=== PATIENT | male | born 1995 | race American Indian/Alaskan Native ===

== ENCOUNTER 2017-07-04 18:15 | Emergency (ER) | payer OTHER ==
[~2017-07-04] VITALS: Ht 188 cm; Wt 156.5 kg
[~2017-07-04 18:15] MED LIST: ACID CONTROL150 MG PO; BACLOFEN10 MG PO; BACTRIM DS TAB1 EACH PO; BENTYL20 MG PO; BUPROPION XL300 MG PO; CORTISPORIN EAR10 ML AU; DICLOFENAC SODI75 MG PO; KEFLEX500 MG PO; NEURONTIN100 MG PO; PRILOSEC20 MG PO; ZOFRAN ODT4 MG PO; ZOFRAN ODT4 MG SL; ZOFRAN4 MG PO
[2017-07-04] MEDS ORDERED: PROTONIX20 MG PO (18:34)
[2017-07-04] MEDS ORDERED: NORCO 5-325 TA1 EACH PO (19:34)
== END 2017-07-04 19:47 | disposition home or self-care (01) ==
LOC: ED 18:15
PROC: 2W3CX1Z Immobilization of Right Lower Arm using Splint (ICD-10-PCS; principal; 2017-07-04)
DX: S62.304A Unspecified fracture of fourth metacarpal bone, right hand, initial encounter for closed fracture (principal); S62.306A Unspecified fracture of fifth metacarpal bone, right hand, initial encounter for closed fracture; F41.9 Anxiety disorder, unspecified; F32.9 Major depressive disorder, single episode, unspecified; F17.200 Nicotine dependence, unspecified, uncomplicated; Z88.8 Allergy status to other drugs, medicaments and biological substances; Z79.899 Other long term (current) drug therapy; W22.8XXA Striking against or struck by other objects, initial encounter
CPT/HCPCS: 29125; 73130; 99283

== ENCOUNTER 2017-07-13 10:00 | Day surgery (SDC) | payer OTHER ==
[~2017-07-13] VITALS: Ht 188 cm; Wt 156.5 kg
[~2017-07-13 10:00] MED LIST changes: +NORCO 5-325 TA1 EACH PO; +PROTONIX20 MG PO
--- NOTE | 2017-07-13 12:38 | NUR ---
FENTANYL 50MCG GIVEN IVP FOR C/O 7/10 PAIN IN R HAND. CALL LITE IN PLACE.
--- NOTE | 2017-07-13 15:48 | NUR ---
07/13/17 1548 Sheree Sheridan 1526-PATIENT ARRIVED TO PACU ON RA LAYING ON LEFT SIDE 93% DRESSING CDI ICE APPLIED. GOOD WARMTH AND CAP REFILL ISIAH RADIAL PULSE. 1533-PATIENT REPORTING PAIN 09/12 MEDICATED WITH 30MG TORADOL IVP. PATIENT PLACED ON 3L NC O2 SAT DECREASED TO 89-90% RR INCREASED TO 26. BREATHING INCREASED. PATIENT ENCOURAGED TO TAKE SLOW DEEP BREATHES. 1537-1 MG DILAUDID IVP GIVEN. PATIENT REPOSITIONING SELF IN BED EDUCATED ON LEAVING RIGHT HAND ON PILLOW AND APPLY ICE. PATIENT ENCOURAGED TO TAKE SLOW BREATHES ANXIOUS.
--- NOTE | 2017-07-13 16:49 | NUR ---
AMILCAR 1625: PT UP TO BR W/RN AND FRIEND ASSIST. PT UNSTEADY ON FEET UPON FIRST STANDING. PT STEADY ON FEET BY THE TIME WE REACH THE BATHROOM. PT VOIDS LARGE AMOUNT AND REQ A CIGARETTE AND TO GO HOME. PLAN OF CARE DISCUSSED W/PATIENT AND HE VERBALIZES UNDERSTANDING. SANDWICH AND FRUIT ORDERED FROM DIETARY. ICED WATER GIVEN. CALL LIGHT W/IN REACH. FRIEND @ BS.
--- NOTE | 2017-07-13 17:27 | NUR ---
FOOD ARRIVED FROM DIETARY. PT STANDING @ BS EATING AND DOING SO WELL. VERBAL DC INSTRUCTIONS GIVEN IN PRESENCE OF FRIEND AND BOTH VERBALIZE UNDERSTANDING.
--- NOTE | 2017-07-13 17:44 | NUR ---
PT AMBULATES OUT OF HOSPITAL W/RN ACCOMPANY AND DOES SO WELL. PT TRANSFERS SELF TO PERSONAL VEHICLE AND IS DC HOME.
--- NOTE | 2017-07-14 14:06 | OR ---
[facility] [address] [place], [place] [address] Signed DATE OF PROCECURE: 07/13/17 PREOPERATIVE DIAGNOSES Displaced fractures, right 4th and right 5th metacarpal. POSTOPERATIVE DIAGNOSES Displaced fractures, right 4th and right 5th metacarpal. PROCEDURE Open reduction and internal fixation, right 4th and right 5th metacarpal midshaft. SURGEON: Boom Doan MD. ANESTHESIA: General. There were no specimens or complications. TOURNIQUET TIME: Under an hour. DESCRIPTION OF PROCEDURE The patient was taken to the operating room. After anesthesia was induced and airway secured, the patient was positioned, prepped and draped in a routine sterile fashion. The arm was exsanguinated with an Esmarch bandage. Pneumatic tourniquet was inflated to 250 mmHg pressure. We then made a dorsal incision in the interval between the 4th and the 5th metacarpal. Skin was divided sharply. Subcutaneous tissue was bluntly spread. Hemostasis was achieved with electrocautery. We then reflected the extensor tendon of the 4th finger in a radial direction and the fracture was visible. Because of severe displacement of the 4th metacarpal fracture, no additional dissection was really required. We reduced the fracture under direct vision and then fixed it with a 6-hole 2.0 mm plate. Clinical examination, an AP and lateral fluoroscopy confirmed good alignment and good position. We then simply pulled the dissection in an older direction. Again, because of the severe disruption of the soft tissues from the force and displacement of the fracture, really no additional dissection was required. Again, we used the termite clamp to reduce and hold the 5th metacarpal fracture. Once we were happy with the clinical alignment and position and the alignment and position noted on fluoroscopy, it too was secured with a 6-hole 2.0 mm plate. The wound was then gently irrigated. Routine wound closure was accomplished and a sterile dressing and a volar splint were applied. He was awakened and taken to the recovery room where he arrived in stable condition. Counts were correct and antibiotic protocols were followed. Electronically Signed By: BOOM DOAN MD 07/14/17 1406 PATIENT NAME: CASTILLO CARBONE OPERATIVE REPORT DATE OF : [birth year] PHYSICIAN: BOOM DOAN MD REPORT #: [id number] REPORT IS CONFIDENTIAL AND NOT TO BE RELEASED WITHOUT AUTHORIZATION [address] [address] Signed Boom Doan MD WFB/Modl /[id number] cc: Karrie Marie PA-C Electronically Signed By: BOOM DOAN MD 07/14/17 1406 PATIENT NAME: CASTILLO CARBONE OPERATIVE REPORT DATE OF : [birth year] PHYSICIAN: BOOM DOAN MD REPORT #: [id number] REPORT IS CONFIDENTIAL AND NOT TO BE RELEASED WITHOUT AUTHORIZATION
== END 2017-07-13 17:40 | disposition home or self-care (01) ==
LOC: DS 10:00
PROVIDERS: Orthopaedic Surgery
PROC: 0PSP04Z Reposition Right Metacarpal with Internal Fixation Device, Open Approach (ICD-10-PCS; principal; 2017-07-13 12:30)
DX: S62.324A Displaced fracture of shaft of fourth metacarpal bone, right hand, initial encounter for closed fracture (principal); S62.326A Displaced fracture of shaft of fifth metacarpal bone, right hand, initial encounter for closed fracture; K21.9 Gastro-esophageal reflux disease without esophagitis; F32.9 Major depressive disorder, single episode, unspecified; W22.09XA Striking against other stationary object, initial encounter; Z88.8 Allergy status to other drugs, medicaments and biological substances; Z79.899 Other long term (current) drug therapy
CPT/HCPCS: 01830; 64417; 73120; 76942; C1713; J0690; J1100; J1170; J1885; J2250; J2405; J2704; J2795; J3010; J7120

== ENCOUNTER 2017-09-21 14:55 | Emergency (ER) | payer OTHER ==
[~2017-09-21] VITALS: Ht 188 cm; Wt 156.5 kg
--- NOTE | 2017-09-22 07:42 | EKG ---
[facility] [address] [facility] [place] [address] Signed Normal sinus rhythm with sinus arrhythmia Incomplete right bundle branch block Borderline ECG When compared with ECG of 12-JUL-2017 12:47, Incomplete right bundle branch block is now present Confirmed by TRACI MCANMARA MD ([id number]) on 09/22/2017 7:42:44 AM Electronically Signed By: TRACI MCNAMARA MD 09/22/17 0742 PATIENT NAME: CASTILLO CARBONE BOOM Electrocardiogram DATE OF : [birth year] PHYSICIAN: TRACI MCNAMARA MD REPORT #: [id number] REPORT IS CONFIDENTIAL AND NOT TO BE RELEASED WITHOUT AUTHORIZATION
== END 2017-09-21 16:41 | disposition home or self-care (01) ==
LOC: ED 14:55
DX: F41.9 Anxiety disorder, unspecified (principal); F17.200 Nicotine dependence, unspecified, uncomplicated; Z88.8 Allergy status to other drugs, medicaments and biological substances
CPT/HCPCS: 71020; 80053; 84484; 85025; 85379; 93005; 93010; 99284

== ENCOUNTER 2017-12-23 17:53 | Emergency (ER) | payer OTHER ==
[~2017-12-23] VITALS: Ht 188 cm; Wt 149.7 kg
--- NOTE | 2017-12-24 07:06 | EKG ---
[facility] [address] [facility] [place] [address] Signed Normal sinus rhythm Normal ECG When compared with ECG of 21-SEP-2017 15:08, Incomplete right bundle branch block is no longer present Confirmed by TRACI MCNAMARA MD ([id number]) on 12/24/2017 7:06:32 AM Electronically Signed By: TRACI MCNAMARA MD 12/24/17 0706 PATIENT NAME: CASTILLO CARBONE BOOM Electrocardiogram DATE OF : [birth year] PHYSICIAN: TRACI MCNAMARA MD REPORT #: [id number] REPORT IS CONFIDENTIAL AND NOT TO BE RELEASED WITHOUT AUTHORIZATION
== END 2017-12-23 19:17 | disposition home or self-care (01) ==
LOC: ED 17:53
DX: R00.2 Palpitations (principal); K21.9 Gastro-esophageal reflux disease without esophagitis; F17.200 Nicotine dependence, unspecified, uncomplicated; Z88.8 Allergy status to other drugs, medicaments and biological substances
CPT/HCPCS: 80048; 84484; 85025; 93005; 93010; 99283

== ENCOUNTER 2018-02-20 06:51 | Emergency (ER) | payer OTHER ==
[~2018-02-20] VITALS: Ht 188 cm; Wt 149.7 kg
[2018-02-20] MEDS ORDERED: NORCO 5-325 TA1 EACH PO (07:50)
[2018-02-20] MEDS ORDERED: CEPHALEXIN500 MG PO (07:50)
== END 2018-02-20 08:02 | disposition home or self-care (01) ==
LOC: ED 06:51
PROC: 0HDRXZZ Extraction of Toe Nail, External Approach (ICD-10-PCS; principal; 2018-02-20)
DX: L60.0 Ingrowing nail (principal); F17.200 Nicotine dependence, unspecified, uncomplicated; Z88.8 Allergy status to other drugs, medicaments and biological substances
CPT/HCPCS: 11750; 99283

== ENCOUNTER 2018-07-04 12:30 | Emergency (ER) | payer OTHER ==
[~2018-07-04] VITALS: Ht 188 cm; Wt 149.7 kg
--- OUTSIDE RECORDS SUMMARY | ~2018-07-04 | XMS | Encounter Summary ---
Demographics + + + | Address | [address] | | | [place] [address] | + + + | Home Phone | | + + + | Preferred Language | Unknown | + + + | Marital Status | Single | + + + | Mu-Ism Affiliation | Unknown | + + + | Race | Unknown | + + + | Ethnic Group | Unknown | + + + Author + + + | Author | [facility] | | | and [place] | + + + | Organization | [facility] | | | and [place] | + + + | Address | Unknown | + + + | Phone | Unavailable | + + + Support + + +---------+ + | Name | Relationship | Address | Phone | + + +---------+ + | Sari Boo | ECON | Unknown | | + + +---------+ + Care Team Providers + +------+ + | Care Environmental Conflict Manager Name | Role | Phone | + +------+ + | Karrie Marie PA-C | PCP | | + +------+ + Reason for Visit Auth/Cert +--------+--------+ + + + + | Status | Reason | Specialty | Diagnoses / | Referred By | Referred To | | | | | Procedures | Contact | Contact | +--------+--------+ + + + + | | | | | | | +--------+--------+ + + + + Encounter Details +--------+ + + + + | Date | Type | Department | Care Team | Description | +--------+ + + + + | 06/28/ | Hospital | [facility] | Karrie Marie | Shortness of breath; | | 2017 | Encounter | [facility] | H, [place] [address] | Dizziness; Heart | | | | MEDICINE [address] | palpitations | | | | [place], | [place] [address] | | | | | [place] [address] | [phone] | | | | | [phone] | | | +--------+ + + + + Social History + +-------+ +--------+------+ | Tobacco Use | Types | Packs/Day | Years | Date | | | | | Used | | + +-------+ +--------+------+ | Never Assessed | | | | | + +-------+ +--------+------+ + + + | Sex Assigned at | Date Recorded | | | | + + + | Not on file | | + + + as of this encounter Plan of Treatment + +--------+ + + | Name | Priori | Associated Diagnoses | Order Schedule | | | ty | | | + +--------+ + + | Event monitor - 4 week | Routin | Shortness of | 1 Occurrences | | | e | breath Dizziness | starting 06/28/2018 | | | | Heart palpitations | until 06/28/2018 | + +--------+ + + as of this encounter Visit Diagnoses + + | Diagnosis | + + | Shortness of breath | + + | Dizziness | + + | Dizziness and giddiness | + + | Heart palpitations | + + | Palpitations | + +"
--- OUTSIDE RECORDS SUMMARY | ~2018-07-04 | XMS | Encounter Summary ---
Demographics + + + | Address | [address] [facility] [address] | | | [place] [address] | + + + | Home Phone | | + + + | Preferred Language | Unknown | + + + | Marital Status | Unknown | + + + | Holiness Affiliation | Unknown | + + + | Race | Unknown | + + + | Ethnic Group | Unknown | + + + Author + + + | Author | [facility] | + + + | Organization | [facility] | + + + | Address | Unknown | + + + | Phone | Unavailable | + + + Support + + +---------+ + | Name | Relationship | Address | Phone | + + +---------+ + | Deidre Garcia | ECON | Unknown | | + + +---------+ + Care Team Providers + +------+ + | Care Pit Hoist Operator Name | Role | Phone | + +------+ + | Karrie Marie PA-C | PCP | | + +------+ + Encounter Details +--------+ + + + + | Date | Type | Department | Care Team | Description | +--------+ + + + + | 06/10/ | Ancillary | [facility] | Karrie Marie | SOB (shortness of | | 2017 | Procedure | ECHO | [facility] [address] | breath); Chest | | | | | [place] [address] | pressure; Dizziness | | | | | [phone] | | | | | | | | +--------+ + + + [...] as of this encounter Plan of Treatment Not on fileas of this encounter Procedures + +--------+ + + + | Procedure Name | Priori | Date/Time | Associated Diagnosis | Comments | | | ty | | | | + +--------+ + + + | ECHO OUTSIDE | Routin | 06/10/2018 | SOB (shortness of | Results for this | | INTERPRETATION | e | 10:42 AM | breath) Chest | procedure are in the | | STANDARD | | PDT | pressure Dizziness | results section. | + +--------+ + + + in this encounter Results ECHO outside interpretation standard (06/10/2018 10:42 AM) + + + | Impressions | Performed At | + + + | 1. This was a technically difficult study with suboptimal views. | [facility] | | Body habitus. 2. Grossly normal LV size and systolic function EF | RADIOLOGY | | 60-65%. Unable to comment on regional wall motion. 3. The right | | | ventricle is mildly enlarged with normal systolic function. 4. There | | | is no pericardial effusion. | | + + + + + + | Narrative | Performed At | + + + | Patient Name: Cachorro Garcia Date of : 1995 | [facility] | | Performing Physician: Radha Juan | RADIOLOGY | | | | | INDICATIONS SOB, Dizziness, chest pressure | | | CONCLUSIONS 1. This was a technically difficult study | | | with suboptimal views. Body habitus. 2. Grossly normal LV size and | | | systolic function EF 60-65%. Unable to comment on regional wall | | | motion. 3. The right ventricle is mildly enlarged with normal | | | systolic function. 4. There is no pericardial effusion. FINDINGS | | | -------- ECG rhythm: Sinus rhythm. Study: A 2-dimensional | | | transthoracic echocardiogram with m-mode, spectral and color flow | | | Doppler was perfomed. Study: This was a technically difficult study | | | with suboptimal views. Body habitus. Left Ventricle: The diastolic | | | filling pattern is normal for the age of the patient. Left | | | Ventricle: Grossly normal LV size and systolic function. Unable to | | | comment on regional wall motion. Right Ventricle: The right ventricle | | | is mildly enlarged measuring between 3.4 - 3.7 cm. Right Ventricle: | | | The right ventricular systolic function is normal. Left Atrium: The | | | left atrium is normal in size. Right Atrium: The right atrium is | | | normal in size. Aortic Valve: The aortic valve was not well | | | visualized. Aortic Valve: There is no evidence of aortic | | | regurgitation. Aortic Valve: There is no evidence of aortic | | | stenosis. Aortic Valve: The aortic valve is trileaflet and appears | | | structurally normal. Mitral Valve: The mitral valve is normal. | | | Mitral Valve: There is trace mitral regurgitation. Tricuspid Valve: | | | The tricuspid valve appears structurally normal. Tricuspid Valve: | | | Trace tricuspid regurgitation present. Tricuspid Valve: There is no | | | evidence of pulmonary hypertension. Tricuspid Valve: The right | | | ventricular systolic pressure (pulmonary artery systolic pressure), as | | | measured by Doppler, is 18.67mmHg. Pulmonic Valve: The pulmonic | | | valve was not well visualized. Pericardium: There is no pericardial | | | effusion. Pericardium: No pleural effusion seen. IVC/Hepatic Veins: | | | The IVC is normal size (1.5-2.5cm) and collapses >50% with sniff, | | | consistent with central venous pressures of 5-10mmHg. Aorta: The | | | aortic root, ascending aorta and aortic arch are normal in size. | | | MEASUREMENTS Ao asc: 2.90 cm Ao Diam: 3.27 cm | | | Ao st junct: 2.54 cm IVC: 2.26 cm LA Diam: 3.84 cm LA | | | Major: 4.69 cm EDV(Teich): 98.91 ml IVSd: 1.00 cm | | | LVIDd: 4.63 cm LVPWd: 0.97 cm LVOT Area: 4.15 cm2 LVOT | | | Diam: 2.30 cm %FS: 28.72 % EF(Teich): 55.34 % | | | ESV(Teich): 44.17 ml LVIDs: 3.30 cm SV(Teich): 54.74 ml | | | RA Major: 5.40 cm RV Major: 7.73 cm RVIDd: 3.04 cm TV | | | Mary Diam: 3.56 cm Ao Root: 2.85 cm Ao Diam SVals: 3.17 | | | cm LVEF MOD A2C: 59.99 % SV MOD A2C: 108.83 ml LVEF MOD | | | A4C: 61.49 % SV MOD A4C: 72.31 ml EF Biplane: 61.07 % | | | LVEDV MOD BP: 153.94 ml LVESV MOD BP: 59.93 ml LVEDV MOD | | | A2C: 181.39 ml LVLd A2C: 9.20 cm LVEDV MOD A4C: 117.60 | | | ml LVLd A4C: 8.27 cm LVESV MOD A2C: 72.55 ml LVLs A2C: | | | 7.50 cm LVESV MOD A4C: 45.28 ml LVLs A4C: 6.79 cm | | | LAESV(A-L): 50.96 ml LAESV Index (A-L): 19.60 ml/m2 LAAs | | | A2C: 17.21 cm2 LAESV A-L A2C: 54.49 ml LALs A2C: 4.61 cm | | | LAAs A4C: 16.10 cm2 LAESV A-L A4C: 46.35 ml LALs A4C: | | | 4.74 cm RAAs: 15.82 cm2 RAESV A-L: 41.71 ml RAESV MOD: | | | 40.82 ml RALs: 5.09 cm TAPSE: 2.51 cm AV maxP.42 | | | mmHg AV meanP.44 mmHg AV Vmax: 1.26 m/s AV Vmean: | | | 0.86 m/s AV VTI: 25.46 cm LUCIAN Vmax: 3.56 cm2 LUCIAN (VTI): | | | 3.47 cm2 LVOT maxP.73 mmHg LVOT meanP.52 mmHg LVSI | | | Dopp: 34.05 ml/m2 LVSV Dopp: 88.53 ml LVOT Vmax: 1.08 | | | m/s LVOT Vmean: 0.73 m/s LVOT VTI: 21.31 cm MV A Gil: | | | 0.57 m/s MV Dec [place]: 5.19 m/s2 MV DecT: 207.99 ms MV E | | | Gil: 1.08 m/s MV E/A Ratio: 1.89 MV PHT: 60.31 ms MVA | | | By PHT: 3.64 cm2 Septal e': 0.11 m/s Septal E/e': 9.72 | | | Lateral e': 0.13 m/s Lateral E/e': 8.28 RAP: 5 mmHg | | | RVSP: 18.67 mmHg TR maxP.67 mmHg TR Vmax: 1.84 m/s | | | S': 0.17 m/s Corporate Development Officer: ANA Authenticated by: Radha | | | [facility] Report Date/Time: 06-10-2018 12:57:6 | | + + + + + | Procedure Note | + + | Aubrey, Rad Results In - 06/10/2018 12:57 PM PDT Patient Name: Mannie Garcia of | | : 1995Accession: [id number] Physician: Radha | | [facility] INDICATIONS------ | | -----SOB, Dizziness, chest pressureCONCLUSIONS 1. This was a technically | | difficult study with suboptimal views. Body habitus.2. Grossly normal LV size and | | systolic function EF 60-65%. Unable to comment on regional wall motion.3. The right | | ventricle is mildly enlarged with normal systolic function.4. There is no pericardial | | effusion.FINDINGS--------ECG rhythm: Sinus rhythm.Study: A 2-dimensional transthoracic | | echocardiogram with m-mode, spectral and color flow Doppler was perfomed. Study: This | | was a technically difficult study with suboptimal views. Body habitus.Left Ventricle: | | The diastolic filling pattern is normal for the age of the patient. Left Ventricle: | | Grossly normal LV size and systolic function. Unable to comment on regional wall | | motion.Right Ventricle: The right ventricle is mildly enlarged measuring between 3.4 - | | 3.7 cm. Right Ventricle: The right ventricular systolic function is normal.Left Atrium: | | The left atrium is normal in size.Right Atrium: The right atrium is normal in size. | | Aortic Valve: The aortic valve was not well visualized. Aortic Valve: There is no | | evidence of aortic regurgitation. Aortic Valve: There is no evidence of aortic stenosis. | | Aortic Valve: The aortic valve is trileaflet and appears structurally normal.Mitral | | Valve: The mitral valve is normal. Mitral Valve: There is trace mitral | | regurgitation.Tricuspid Valve: The tricuspid valve appears structurally normal. | | Tricuspid Valve: Trace tricuspid regurgitation present. Tricuspid Valve: There is no | | evidence of pulmonary hypertension. Tricuspid Valve: The right ventricular systolic | | pressure (pulmonary artery systolic pressure), as measured by Doppler, is | | 18.67mmHg.Pulmonic Valve: The pulmonic valve was not well visualized.Pericardium: There | | is no pericardial effusion. Pericardium: No pleural effusion seen.IVC/Hepatic Veins: The | | IVC is normal size (1.5-2.5cm) and collapses >50% with sniff, consistent with central | | venous pressures of 5-10mmHg.Aorta: The aortic root, ascending aorta and aortic arch are | | normal in size.MEASUREMENTS Ao asc: 2.90 cmAo Diam: 3.[address] junct: | | 2.54 cmIVC: 2.26 cmLA Diam: 3.84 cmLA Major: 4.69 cmEDV(Teich): 98.91 mlIVSd: | | 1.00 cmLVIDd: 4.63 cmLVPWd: 0.97 cmLVOT Area: 4.15 [id number] Diam: 2.30 cm%FS: | | 28.72 %EF(Teich): 55.34 %ESV(Teich): 44.17 mlLVIDs: 3.30 cmSV(Teich): 54.74 | | mlRA Major: 5.40 cmRV Major: 7.73 cmRVIDd: 3.04 cmTV Mary Diam: 3.56 cmAo Root: | | 2.85 cmAo Diam SVals: 3.17 cmLVEF MOD A2C: 59.99 %SV MOD A2C: 108.83 mlLVEF MOD | | A4C: 61.49 %SV MOD A4C: 72.31 mlEF Biplane: 61.07 %LVEDV MOD BP: 153.94 mlLVESV | | MOD BP: 59.93 mlLVEDV MOD A2C: 181.39 mlLVLd A2C: 9.20 cmLVEDV MOD A4C: 117.60 | | mlLVLd A4C: 8.27 cmLVESV MOD A2C: 72.55 mlLVLs A2C: 7.50 cmLVESV MOD A4C: 45.28 | | mlLVLs A4C: 6.79 cmLAESV(A-L): 50.96 mlLAESV Index (A-L): 19.60 ml/m2LAAs A2C: | | 17.21 [id number] A-L A2C: 54.49 mlLALs A2C: 4.61 cmLAAs A4C: 16.10 [id number] A-L A4C: | | 46.35 mlLALs A4C: 4.74 cmRAAs: 15.82 [id number] A-L: 41.71 mlRAESV MOD: 40.82 | | mlRALs: 5.09 cmTAPSE: 2.51 cmAV maxP.42 mmHgAV meanP.44 mmHgAV Vmax: | | 1.26 m/Caesar Vmean: 0.86 m/Caesar VTI: 25.46 cmAVA Vmax: 3.56 cm2AVA (VTI): 3.47 | | [id number] maxP.73 mmHgLVOT meanP.52 mmHgLVSI Dopp: 34.05 ml/m2LVSV Dopp: | | 88.53 mlLVOT Vmax: 1.08 m/sLVOT Vmean: 0.73 m/sLVOT VTI: 21.31 cmMV A Gil: 0.57 | | m/sMV Dec [place]: 5.19 m/s2MV DecT: 207.99 msMV E Gil: 1.08 m/sMV E/A Ratio: 1.89 | | MV PHT: 60.31 msMVA By PHT: 3.64 lj3Cyvaud e': 0.11 m/sSeptal E/e': 9.72 | | Lateral e': 0.13 m/sLateral E/e': 8.28 RAP: 5 mmHgRVSP: 18.67 mmHgTR maxPG: | | 13.67 mmHgTR Vmax: 1.84 m/sS': 0.17 m/sSonographer: DHAuthenticated by: Mershed | | [facility] Date/Time: 06-10-2018 12:57:6IMPRESSION:1. This was a technically difficult | | study with suboptimal views. Body habitus.2. Grossly normal LV size and systolic | | function EF 60-65%. Unable to comment on regional wall motion.3. The right ventricle is | | mildly enlarged with normal systolic function.4. There is no pericardial effusion. | |IVC: 2.26 cm | |LA Diam: 3.84 cm | |LA Major: 4.69 cm | |EDV(Teich): 98.91 ml | |IVSd: 1.00 cm | |LVIDd: 4.63 cm | |LVPWd: 0.97 cm | |LVOT Area: 4.15 cm2 | |LVOT Diam: 2.30 cm | |%FS: 28.72 % | |EF(Teich): 55.34 % | |ESV(Teich): 44.17 ml | |LVIDs: 3.30 cm | |SV(Teich): 54.74 ml | |RA Major: 5.40 cm | |RV Major: 7.73 cm | |RVIDd: 3.04 cm | |TV Mary Diam: 3.56 cm | |Ao Root: 2.85 cm | |Ao Diam SVals: 3.17 cm | |LVEF MOD A2C: 59.99 % | |SV MOD A2C: 108.83 ml | |LVEF MOD A4C: 61.49 % | |SV MOD A4C: 72.31 ml | |EF Biplane: 61.07 % | |LVEDV MOD BP: 153.94 ml | |LVESV MOD BP: 59.93 ml | |LVEDV MOD A2C: 181.39 ml | |LVLd A2C: 9.20 cm | |LVEDV MOD A4C: 117.60 ml | |LVLd A4C: 8.27 cm | |LVESV MOD A2C: 72.55 ml | |LVLs A2C: 7.50 cm | |LVESV MOD A4C: 45.28 ml | |LVLs A4C: 6.79 cm | |LAESV(A-L): 50.96 ml | |LAESV Index (A-L): 19.60 ml/m2 | |LAAs A2C: 17.21 cm2 | |LAESV A-L A2C: 54.49 ml | |LALs A2C: 4.61 cm | |LAAs A4C: 16.10 cm2 | |LAESV A-L A4C: 46.35 ml | |LALs A4C: 4.74 cm | |RAAs: 15.82 cm2 | |RAESV A-L: 41.71 ml | |RAESV MOD: 40.82 ml | |RALs: 5.09 cm | |TAPSE: 2.51 cm | |AV maxP.42 mmHg | |AV meanP.44 mmHg | |AV Vmax: 1.26 m/s | |AV Vmean: 0.86 m/s | |AV VTI: 25.46 cm | |LUCIAN Vmax: 3.56 cm2 | |LUCIAN (VTI): 3.47 cm2 | |LVOT maxP.73 mmHg | |LVOT meanP.52 mmHg | |LVSI Dopp: 34.05 ml/m2 | |LVSV Dopp: 88.53 ml | |LVOT Vmax: 1.08 m/s | |LVOT Vmean: 0.73 m/s | |LVOT VTI: 21.31 cm | |MV A Gil: 0.57 m/s | |MV Dec [place]: 5.19 m/s2 | |MV DecT: 207.99 ms | |MV E Gil: 1.08 m/s | |MV E/A Ratio: 1.89 | |MV PHT: 60.31 ms | |MVA By PHT: 3.64 cm2 | |Septal e': 0.11 m/s | |Septal E/e': 9.72 | |Lateral e': 0.13 m/s | |Lateral E/e': 8.28 | |RAP: 5 mmHg | |RVSP: 18.67 mmHg | |TR maxP.67 mmHg | |TR Vmax: 1.84 m/s | |S': 0.17 m/s | | | |Corporate Development Officer: DH | |Authenticated by: Radha Juan | |Report Date/Time: 06-10-2018 12:57:6 | | | |IMPRESSION: | |1. This was a technically difficult study with suboptimal views. Body habitus. | |2. Grossly normal LV size and systolic function EF 60-65%. Unable to comment on regional wa ll motion. | |3. The right ventricle is mildly enlarged with normal systolic function. | |4. There is no pericardial effusion. | + + + + + + + | Performing | Address | City/State/Zipcode | Phone Number | | Organization | | | | + + + + + | [facility] | [address] | [place] [address] | | + + + + + in this encounter Visit Diagnoses + + | Diagnosis | + + | SOB (shortness of breath) | + + | Shortness of breath | + + | Chest pressure | + + | Other chest pain | + + | Dizziness | + + | Dizziness and giddiness | + +"
--- OUTSIDE RECORDS SUMMARY | ~2018-07-04 | XMS | Clinical Summary ---
Demographics + + + | Address | [address] | | | [place] [address] | + + + | Home Phone | | + + + | Preferred Language | Unknown | + + + | Marital Status | Single | + + + | Scientology Affiliation | Unknown | + + + | Race | Unknown | + + + | Ethnic Group | Unknown | + + + Author + + + | Author | [facility] | | | and [place] | + + + | Organization | [facility] | | | and [place] | + + + | Address | Unknown | + + + | Phone | Unavailable | + + + Support + + +---------+ + | Name | Relationship | Address | Phone | + + +---------+ + | aSri Boo | ECON | Unknown | | + + +---------+ + Care Team Providers + +------+ + | Care Property Underwriter Name | Role | Phone | + +------+ + | Karrie Marie PA-C | PP | | + +------+ + Allergies Not on File Current Medications Not on file Active Problems Not on file Encounters +--------+ + + + + | Date | Type | Specialty | Care Team | Description | +--------+ + + + + | 06/28/ | Hospital | | Karrie Marie | Shortness of breath; | | 2017 | Encounter | | [facility]IO Rasheed | Dizziness; Heart | | | | | | palpitations | +--------+ + + + + | 06/21/ | Transcribed | | Karrie Marie | Shortness of breath | | 2017 | Orders | | [facility]heed | (Primary Dx); | | | | | | Dizziness; Heart | | | | | | palpitations | +--------+ + + + + from Last 3 Months Social History + +-------+ +--------+------+ | Tobacco [...] | | + +--------+ +--------+ +---------+ | [facility] | [employer] | [id number] | Indemn | | | | SERVICE | YELLOW | | ity | | | | | [place] | | | | | + +--------+ +--------+ +---------+ | [employer] | [employer] | [id number] | [employer] | [phone] | | MEDICAID HMO | HEALTH [...] | Self | [birth year] | Home: | [address] [place] [address] | | BOOM | jose alberto/Bishnu | | 1994 | [phone] | [place] | | | katey | | | [phone] | + +--------+ +--------+ + +"
--- OUTSIDE RECORDS SUMMARY | ~2018-07-04 | XMS | Encounter Summary ---
Demographics + + + | Address | [address] | | | [place] [address] | + + + | Home Phone | | + + + | Preferred Language | Unknown | + + + | Marital Status | Unknown | + + + | Jewish Affiliation | Unknown | + + + | Race | Unknown | + + + | Ethnic Group | Unknown | + + + Author + + + | Author | [facility] | + + + | Organization | [facility] | + + + | Address | Unknown | + + + | Phone | Unavailable | + + + Support + + +---------+ + | Name | Relationship | Address | Phone | + + +---------+ + | Deidre Garcia | ECON | Unknown | | + + +---------+ + Care Team Providers + +------+ + | Care Guitar Maker Name | Role | Phone | + +------+ + | Karrie Marie PA-C | PCP | | + +------+ + Encounter Details +--------+ + + + + | Date | Type | Department | Care Team | Description | +--------+ + + + + | 06/10/ | Ancillary | [facility] | Karrie Marie | SOB (shortness of | | 2017 | Orders | ECHO | [place] [address] | breath); Chest | | | | | [place] [address] | pressure; Dizziness | | | | | [phone] | | | | | | | [...] Treatment Not on fileas of this encounter Results ECHO outside interpretation standard (06/10/2018 10:42 AM) + + + | Impressions | Performed At | + + + | 1. This was a technically difficult study with suboptimal views. | [facility] | | Body habitus. 2. Grossly normal [...] Cachorro Garcia Date of : 1995 | [place] | | Performing Physician: Radha Juan | [...] | | | 0.57 m/s MV Dec Ellis: 5.19 m/s2 MV DecT: 207.99 ms MV [...] m/s | | | S': 0.17 m/s Certified Medical Technician: ANA Authenticated by: Radha | | | [facility] Report Date/Time: 06-10-2018 12:57:6 | | + + + + + | Procedure Note | + + | Aubrey, Rad Results In - 06/10/2018 12:57 PM PDT Patient Name: Mannie Garcia of | | : 1995Accession: [id number] Physician: Radha | | [facility] INDICATIONS------ | | -----SOB, Dizziness, chest pressureCONCLUSIONS [...] cmLVIDd: 4.63 cmLVPWd: 0.97 cmLVOT Area: 4.15 fm6COYG Diam: 2.30 cm%FS: | | 28.72 %EF(Teich): [...] (A-L): 19.60 ml/m2LAAs A2C: | | 17.21 nf0BOFLS A-L A2C: 54.49 mlLALs A2C: 4.61 cmLAAs A4C: 16.10 vf2QCPWJ A-L A4C: | | 46.35 mlLALs A4C: 4.74 cmRAAs: 15.82 hx0XGALS A-L: 41.71 mlRAESV MOD: 40.82 | | mlRALs: 5.09 cmTAPSE: 2.51 cmAV maxP.42 mmHgAV meanP.44 mmHgAV Vmax: | | 1.26 m/Caesar Vmean: 0.86 m/Caesar VTI: 25.46 cmAVA Vmax: 3.56 cm2AVA (VTI): 3.47 | | wr5KORA maxP.73 mmHgLVOT meanP.52 mmHgLVSI Dopp: 34.05 ml/m2LVSV Dopp: | | 88.53 mlLVOT Vmax: 1.08 m/sLVOT Vmean: 0.73 m/sLVOT VTI: 21.31 cmMV A Gil: 0.57 | | m/sMV Dec Ellis: 5.19 m/s2MV DecT: 207.99 msMV E Gil: 1.08 m/sMV E/A Ratio: 1.89 | | MV PHT: 60.31 msMVA By PHT: 3.64 xj4Xyxamu e': 0.11 m/sSeptal E/e': 9.72 | | Lateral e': 0.13 m/sLateral E/e': 8.28 RAP: 5 mmHgRVSP: 18.67 mmHgTR maxPG: | | 13.67 mmHgTR Vmax: 1.84 m/sS': 0.17 m/sSonographer: DHAuthenticated by: Radha | | AlsamaraReport Date/Time: 06-10-2018 12:57:6IMPRESSION:1. This was a technically [...] A Gil: 0.57 m/s | |MV Dec Ellis: 5.19 m/s2 | |MV DecT: 207.99 ms [...] | |S': 0.17 m/s | | | |Certified Medical Technician: ANA | |Authenticated by: Radha Juan | |Report [...] | + + + + + | [facility] | [address] | [place] [address] | | + + + + + [...]
--- OUTSIDE RECORDS SUMMARY | ~2018-07-04 | XMS | Clinical Summary ---
Demographics + + + | Address | [address] | | | [place] [address] | + + + | Home Phone | | + + + | Preferred Language | Unknown | + + + | Marital Status | Unknown | + + + | Buddhism Affiliation | Unknown | + + + | Race | Unknown | + + + | Ethnic Group | Unknown | + + + Author + + + | Author | [facility] | + + + | Organization | [facility] | + + + | Address | Unknown | + + + | Phone | Unavailable | + + + Support + + +---------+ + | Name | Relationship | Address | Phone | + + +---------+ + | Deidre Carbone | ECON | Unknown | | + + +---------+ + Care Team Providers + +------+ + | Care Roll Grinder Name | Role | Phone | + +------+ + | Karrie Marie PA-C | PP | | + +------+ + Allergies Not on File Current Medications Not on file Active Problems Not on file Encounters +--------+ + + + + | Date | Type | Specialty | Care Team | Description | +--------+ + + + + | 06/10/ | Ancillary | | Karrie Marie | SOB (shortness of | | 2017 | Procedure | | [place] | breath); Chest | | | | | | pressure; Dizziness | +--------+ + + + + | 06/10/ | Ancillary | | Karrie Marie | SOB (shortness of | | 2018 | Orders | | H, PA-C | breath); Chest | | | | | | pressure; Dizziness | +--------+ + + + + from [...] | | + + + + + Procedures + +--------+ + + + | [...] section. | + +--------+ + + + from Last 3 Months Results ECHO outside interpretation standard (06/10/2018 10:42 [...] | + + + | Patient Name: Castillo Carbone Date of : 1995 | [facility] | | Performing Physician: Radha Juan | [...] RVIDd: 3.04 cm TV | | | Mray Diam: 3.56 cm Ao Root: 2.85 cm [...] | | | 0.57 m/s MV Dec Bradford: 5.19 m/s2 MV DecT: 207.99 ms MV [...] m/s | | | S': 0.17 m/s Prick Stitcher: ANA Authenticated by: Radha | | Loreta Juan Report Date/Time: 06-10-2018 12:57:6 | | + + + + + | Procedure Note | + + | Edward Burgos Results In - 06/10/2018 12:57 PM PDT Patient Name: Castillo CarboneMarsha of | | : 1995Accession: [id number] Physician: Radha | | [facility] INDICATIONS------ | | -----SOB, [...] cmLVIDd: 4.63 cmLVPWd: 0.97 cmLVOT Area: 4.15 xw2BPRS Diam: 2.30 cm%FS: | | 28.72 %EF(Teich): [...] (A-L): 19.60 ml/m2LAAs A2C: | | 17.21 gk6WIJTZ A-L A2C: 54.49 mlLALs A2C: 4.61 cmLAAs A4C: 16.10 lq5JYFQO A-L A4C: | | 46.35 mlLALs A4C: 4.74 cmRAAs: 15.82 gn1JXTNV A-L: 41.71 mlRAESV MOD: 40.82 | | mlRALs: 5.09 cmTAPSE: 2.51 cmAV maxP.42 mmHgAV meanP.44 mmHgAV Vmax: | | 1.26 m/Caesar Vmean: 0.86 m/Caesar VTI: 25.46 cmAVA Vmax: 3.56 cm2AVA (VTI): 3.47 | | rv8CBPB maxP.73 mmHgLVOT meanP.52 mmHgLVSI Dopp: 34.05 ml/m2LVSV Dopp: | | 88.53 mlLVOT Vmax: 1.08 m/sLVOT Vmean: 0.73 m/sLVOT VTI: 21.31 cmMV A Gil: 0.57 | | m/sMV Dec Bradford: 5.19 m/s2MV DecT: 207.99 msMV E Gil: 1.08 m/sMV E/A Ratio: 1.89 | | MV PHT: 60.31 msMVA By PHT: 3.64 yw5Pgncuk e': 0.11 m/sSeptal E/e': 9.72 | | Lateral e': 0.13 m/sLateral E/e': 8.28 RAP: 5 mmHgRVSP: 18.67 mmHgTR maxPG: | | 13.67 mmHgTR Vmax: 1.84 m/sS': 0.17 m/sSonographer: DHAuthenticated by: Radha | | [facility]: 06-10-2018 12:57:6IMPRESSION:1. This was a technically [...] A Gil: 0.57 m/s | |MV Dec Bradford: 5.19 m/s2 | |MV DecT: 207.99 ms [...] | |S': 0.17 m/s | | | |Prick Stitcher: ANA | |Authenticated by: Radha Juan | [...] | + + + + + | [facility] | [address] | [place] [address] | | + + + + + from Last 3 Months Insurance + +--------+ +------+-------+ + | Payer | Benefi | Subscriber | Type | Phone | Address | | | t Plan | ID | | | | | | / | | | | | | | Group | | | | | + +--------+ +------+-------+ + | MEDICAID | [employer] | [id number] | | | [address] | | | N | | | | [place], [place] | | | [place] | | | | [address] | | | CLUB LICENSEE | | | | | + +--------+ [...] | [address] | | | jose alberto/Bishnu | | 1994 | [phone] | [address] | | | katey | | | [phone]: | [place] | | | | | | | [address] | | | | | | [phone] | | | | | | | [phone] | | + +--------+ +--------+ + +"
--- OUTSIDE RECORDS SUMMARY | ~2018-07-04 | XMS | Encounter Summary ---
Demographics + + + | Address | [address] | | | [place] [address] | + + + | Home Phone | | + + + | Preferred Language | Unknown | + + + | Marital Status | Single | + + + | Sikhism Affiliation | Unknown | + + + | Race | Unknown | + + + | Ethnic Group | Unknown | + + + Author + + + | Author | [facility] | | | and Casana | + + + | Organization | [facility] | | | and [...] Team Providers + +------+ + | Care Canopy Inspector Name | Role | Phone | + +------+ + | Karrie Marie PA-C | PCP | | + +------+ + Reason for Referral Diagnostic/Screening (Routine) +--------+--------+ + + + + | Status | Reason | Specialty | Diagnoses / | Referred By | Referred To | | | | | Procedures | Contact | Contact | +--------+--------+ + + + + | Closed | | Radiology | Diagnoses | [place]ostephane, | [facility] | | | | | Shortness | Karrie Rasheed, | [address] | | | | | of breath | [place] [address] | [place], | | | | | Dizziness | [place] | [place] | | | | | Heart | WAY | [address] | | | | | palpitations | [place], | Phone: | | | | | Procedures | [place] [address] | [phone] | | | | | ECHO | Phone: | Fax: | | | | | Complete [place] | [phone] | [phone] | | | | | ECHO HEART | Fax: | | | | | | [place] | [phone] | | | | | | MPLETE W | | | | | | | DOPPLER [place] | | | | | | | ECHO HEART | | | | | | | [place] | | | | | | | MPLETE, W/O | | | | | | | DOPPLER | | | +--------+--------+ + + + + Encounter Details +--------+ + + + + | Date | Type | Department | Care Team | Description | +--------+ + + + + | 06/21/ | Transcribed | [facility] | Karrie Marie | Shortness of breath | | 2018 | Orders | CARDIOLOGY [address] | H, [place]-C [address] | (Primary Dx); | | | | [place], | [address] | Dizziness; Heart | | | | [place] [address] | [place] [address] | palpitations | | | | [phone] | [phone] | | | | | | | [...] | | + +--------+ + + | ECHO Complete | Routin | Shortness of | Expected: | | | e | breath Dizziness | 06/21/2018, Expires: | | | | Heart palpitations | 06/21/2019 | + +--------+ + + | Event monitor - 4 week | Routin | Shortness of | 1 Occurrences | | | e | breath Dizziness | starting 06/21/2018 | | | | Heart palpitations | until 06/21/2019 | + +--------+ + + as of this encounter Visit Diagnoses + + | Diagnosis | + + | Shortness of breath - Primary | + + | Dizziness | + + | Dizziness and giddiness | + + | Heart palpitations | + + | Palpitations | + +"
--- OUTSIDE RECORDS SUMMARY | ~2018-07-04 | XMS | Clinical Summary ---
Demographics + + + | Address | [address] | | | [place] [address] | + + + | Home Phone | | + + + | Preferred Language | Unknown | + + + | Marital Status | Unknown | + + + | Presybeterian Affiliation | Unknown | + + + | Race | Unknown | + + + | Ethnic Group | Unknown | + + + Author + + + | Author | [facility] | + + + | Organization | [facility] | + + + | Address | Unknown | + + + | Phone | Unavailable | + + + Support + + +---------+ + | Name | Relationship | Address | Phone | + + +---------+ + | Deidre Carbone | ECON | Unknown | | + + +---------+ + Care Team Providers + +------+ + | Care Tar Leveler Name | Role | Phone | + [...] Castillo Carbone Date of : 1995 | [facility] | | Performing Physician: Radha Juan | [...] | | | 0.57 m/s MV Dec Burnet: 5.19 m/s2 MV DecT: 207.99 ms MV [...] m/s | | | S': 0.17 m/s Process Improvement Specialist: ANA Authenticated by: Radha | | Loreta Juan Report Date/Time: 06-10-2018 12:57:6 | | + + + + + | Procedure Note | + + | Edward Burgos Results In - 06/10/2018 12:57 PM PDT Patient Name: Castillo CarboneMarsha of | | : 1995Accession: [id number] Physician: Radha | | [facility] INDICATIONS------ | | -----SOB, Dizziness, [...] cmLVIDd: 4.63 cmLVPWd: 0.97 cmLVOT Area: 4.15 jq4LJFS Diam: 2.30 cm%FS: | | 28.72 %EF(Teich): [...] (A-L): 19.60 ml/m2LAAs A2C: | | 17.21 es5OWCCR A-L A2C: 54.49 mlLALs A2C: 4.61 cmLAAs A4C: 16.10 oy9VWBTP A-L A4C: | | 46.35 mlLALs A4C: 4.74 cmRAAs: 15.82 uf6FDRBG A-L: 41.71 mlRAESV MOD: 40.82 | | mlRALs: 5.09 cmTAPSE: 2.51 cmAV maxP.42 mmHgAV meanP.44 mmHgAV Vmax: | | 1.26 m/Caesar Vmean: 0.86 m/Caesar VTI: 25.46 cmAVA Vmax: 3.56 cm2AVA (VTI): 3.47 | | bi3GXSI maxP.73 mmHgLVOT meanP.52 mmHgLVSI Dopp: 34.05 ml/m2LVSV Dopp: | | 88.53 mlLVOT Vmax: 1.08 m/sLVOT Vmean: 0.73 m/sLVOT VTI: 21.31 cmMV A Gil: 0.57 | | m/sMV Dec Burnet: 5.19 m/s2MV DecT: 207.99 msMV E Gil: 1.08 m/sMV E/A Ratio: 1.89 | | MV PHT: 60.31 msMVA By PHT: 3.64 js3Cflrzy e': 0.11 m/sSeptal E/e': 9.72 | | Lateral e': 0.13 m/sLateral E/e': 8.28 RAP: 5 mmHgRVSP: 18.67 mmHgTR maxPG: | | 13.67 mmHgTR Vmax: 1.84 m/sS': 0.17 m/sSonographer: DHAuthenticated by: Radha | | [facility]: 06-10-2018 12:57:6IMPRESSION:1. This was a technically [...] A Gil: 0.57 m/s | |MV Dec Burnet: 5.19 m/s2 | |MV DecT: 207.99 ms [...] | |S': 0.17 m/s | | | |Process Improvement Specialist: ANA | |Authenticated by: Radha Juan | [...] [facility] | [address] | [place] [address] | | + + + + + [...] +------+-------+ + | MEDICAID | [employer] | [id number] | | | [address] | | | N | | | | [place], [place] | | | [place] | | | | [address] | | | [employer] MANAGEMENT SUPERVISOR | | | | | + +--------+ [...] | jose alberto/Bishnu | | 1994 | [phone] | [address] | | | k[place]y | | | [phone]: | [place] | | | | | | | [address] | | | | | | [phone] | | | | | | | [phone] | | + +--------+ +--------+ + +"
--- OUTSIDE RECORDS SUMMARY | ~2018-07-04 | XMS | Encounter Summary ---
Demographics + + + | Address | [address] | | | [place] [address] | + + + | Home Phone | | + + + | Preferred Language | Unknown | + + + | Marital Status | Single | + + + | Baptism Affiliation | Unknown | + + + | Race | Unknown | + + + | Ethnic Group | Unknown | + + + Author + + + | Author | [facility] | | | and [place] | + + + | Organization | [facility] | | | [...] Team Providers + +------+ + | Care Police Detention Attendant Name | Role | Phone | + [...] Shortness | Karrie Rasheed, | [address] | | | | | of breath | [place] [address] | [place], | | | | | Dizziness | [place] | [place] | | | | | Heart | WAY | [address] | | | | | palpitations | [place], | Phone: | | | | | Procedures | [place] [address] | [phone] | | | | | ECHO | Phone: | Fax: | | | | | Complete [place] | [phone] | [phone] | | | | | ECHO HEART | Fax: | | | | | | [place] | [phone] | | | | | | MPLETE W | | | | | | | DOPPLER MD | | | | | | | [...] | CARDIOLOGY [address] | H, PA-C [address] | (Primary Dx); | | | | [place], | [address] | Dizziness; [place] | | | | [place] [address] | [place] [address] | palpitations | | | | [phone] | [phone] | | | | | | | [...]
--- OUTSIDE RECORDS SUMMARY | ~2018-07-04 | XMS | Encounter Summary ---
Demographics + + + | Address | [address] | | | [place] [address] | + + + | Home Phone | | + + + | Preferred Language | Unknown | + + + | Marital Status | Unknown | + + + | Samaritan Affiliation | Unknown | + + + | Race | Unknown | + + + | Ethnic Group | Unknown | + + + Author + + + | Author | [facility] | + + + | Organization | [facility] | + + + | Address | Unknown | + + + | Phone | Unavailable | + + + Support + + +---------+ + | Name | Relationship | Address | Phone | + + +---------+ + | Deidre Garcia | ECON | Unknown | | + + +---------+ + Care Team Providers + +------+ + | Care Credit Risk Management Director Name | Role | Phone | + +------+ + | Karrie Marie PA-C | PCP | | + +------+ + Encounter Details +--------+ + + + + | Date | Type | Department | Care Team | Description | +--------+ + + + + | 06/10/ | Ancillary | [facility] | Karrie Marie | SOB (shortness of | | 2017 | Procedure | ECHO | [place] [address] | breath); Chest | | | | | [place] [address] | pressure; Dizziness | | | | | [phone] | | | | | | | [...] Cachorro Garcia Date of : 1995 | [facility] | | Performing Physician: Radha Juan [...] | | | 0.57 m/s MV Dec Emmet: 5.19 m/s2 MV DecT: 207.99 ms MV [...] m/s | | | S': 0.17 m/s Computer Numeric Control Setter: ANA Authenticated by: Radha | | | [facility] Report Date/Time: 06-10-2018 12:57:6 | | + + + + + | Procedure Note | + + | Aubrey, Rad Results In - 06/10/2018 12:57 PM PDT Patient Name: Mannie Garcia of | | : 1995Accession: [id number] Physician: Radha | | [facility] INDICATIONS------ | | -----SOB, Dizziness, chest pressureCONCLUSIONS [...] cmLVIDd: 4.63 cmLVPWd: 0.97 cmLVOT Area: 4.15 vv6PIUK Diam: 2.30 cm%FS: | | 28.72 %EF(Teich): [...] (A-L): 19.60 ml/m2LAAs A2C: | | 17.21 uq6IUJYC A-L A2C: 54.49 mlLALs A2C: 4.61 cmLAAs A4C: 16.10 uu9WEKGH A-L A4C: | | 46.35 mlLALs A4C: 4.74 cmRAAs: 15.82 dl1LZTMF A-L: 41.71 mlRAESV MOD: 40.82 | | mlRALs: 5.09 cmTAPSE: 2.51 cmAV maxP.42 mmHgAV meanP.44 mmHgAV Vmax: | | 1.26 m/Caesar Vmean: 0.86 m/Caesar VTI: 25.46 cmAVA Vmax: 3.56 cm2AVA (VTI): 3.47 | | il8MQHR maxP.73 mmHgLVOT meanP.52 mmHgLVSI Dopp: 34.05 ml/m2LVSV Dopp: | | 88.53 mlLVOT Vmax: 1.08 m/sLVOT Vmean: 0.73 m/sLVOT VTI: 21.31 cmMV A Gil: 0.57 | | m/sMV Dec Emmet: 5.19 m/s2MV DecT: 207.99 msMV E Gil: 1.08 m/sMV E/A Ratio: 1.89 | | MV PHT: 60.31 msMVA By PHT: 3.64 ii3Xxqanm e': 0.11 m/sSeptal E/e': 9.72 | | Lateral e': 0.13 m/sLateral E/e': 8.28 RAP: 5 mmHgRVSP: 18.67 mmHgTR maxPG: | | 13.67 mmHgTR Vmax: 1.84 m/sS': 0.17 m/sSonographer: DHAuthenticated by: Mershed | | [facility] Date/Time: 06-10-2018 12:57:6IMPRESSION:1. This was a [...] A Gil: 0.57 m/s | |MV Dec Emmet: 5.19 m/s2 | |MV DecT: 207.99 ms [...] | |S': 0.17 m/s | | | |Computer Numeric Control Setter: DH | |Authenticated by: Radha Juan | [...] | + + + + + | [facility] | [address] | [place] [address] | | + + + + + [...]
--- OUTSIDE RECORDS SUMMARY | ~2018-07-04 | XMS | Encounter Summary ---
Demographics + + + | Address | [address] | | | [place] [address] | + + + | Home Phone | | + + + | Preferred Language | Unknown | + + + | Marital Status | Single | + + + | Buddhism Affiliation | Unknown | + + + | Race | Unknown | + + + | Ethnic Group | Unknown | + + + Author + + + | Author | [facility] | | | and Casana | + + + | Organization | [facility] | | | and [...] Team Providers + +------+ + | Care Major Case Detective Name | Role | Phone | + [...] + + | 06/28/ | Hospital | [facility] | Karrie Marie | Shortness of breath; | | 2017 | Encounter | [facility] | [place], [place]-C [address] | Dizziness; Heart | | | | MEDICINE [address] | palpitations | | | | [place], | [place] [address] | | | | | [place] [address] | [phone] | | | | | [phone] | | | +--------+ + + + [...]
--- OUTSIDE RECORDS SUMMARY | ~2018-07-04 | XMS | Clinical Summary ---
Demographics + + + | Address | [address] | | | [place] [address] | + + + | Home Phone | | + + + | Preferred Language | Unknown | + + + | Marital Status | Single | + + + | Jain Affiliation | Unknown | + + + | Race | Unknown | + + + | Ethnic Group | Unknown | + + + Author + + + | Author | [facility] | | | and Casana | + + + | Organization | [facility] | | | [...] Team Providers + +------+ + | Care Towel Sorter Name | Role | Phone | + [...] | 06/21/ | Transcribed | | Karrie Mraie | Shortness of breath | | 2017 [...] | | + +--------+ +--------+ +---------+ | [facility] | IHS | [id number] | Indemn | | | | SERVICE | YELLOW | | ity | | | | | HAWK | | | | | + +--------+ +--------+ +---------+ | [employer] | MOD[employer] | [id number] | Medica | [phone] | | MEDICAID HMO | HEALTH [...] | Self | [birth year] Home: | [address] [place] [address] | | BOOM | jose alberto/Bishnu | | 1994 | [phone] | [place] | | | katey | | [phone] | + +--------+ +--------+ + +"
--- OUTSIDE RECORDS SUMMARY | ~2018-07-04 | XMS | Encounter Summary ---
Demographics + + + | Address | [address] | | | [place] [address] | + + + | Home Phone | | + + + | Preferred Language | Unknown | + + + | Marital Status | Unknown | + + + | Sikhism Affiliation | Unknown | + + + | Race | Unknown | + + + | Ethnic Group | Unknown | + + + Author + + + | Author | [facility] | + + + | Organization | [facility] | + + + | Address | Unknown | + + + | Phone | Unavailable | + + + Support + + +---------+ + | Name | Relationship | Address | Phone | + + +---------+ + | Deidre Garcia | ECON | Unknown | | + + +---------+ + Care Team Providers + +------+ + | Care Custom Van Converter Name | Role | Phone | + +------+ + | Karrie Marie PA-C | PCP | | + +------+ + Encounter Details +--------+ + + + + | Date | Type | Department | Care Team | Description | +--------+ + + + + | 06/10/ | Ancillary | [facility] | Karrie Marie | SOB (shortness of | | 2017 | Orders | ECHO | [place] [address] | breath); Chest | | | | | [place] [address] | pressure; Dizziness | | | | | [phone] | | | | | | | [...] | | | 0.57 m/s MV Dec [place]: 5.19 m/s2 MV DecT: 207.99 ms MV [...] m/s | | | S': 0.17 m/s Leadership Program Internship: ANA Authenticated by: Radha | | | [facility] Report Date/Time: 06-10-2018 12:57:6 | | + + + + + | Procedure Note | + + | Aubrey, Rad Results In - 06/10/2018 12:57 PM PDT Patient Name: Mannie Garcia of | | : 1995Accession: [id number] Physician: Radha | | [facility] INDICATIONS------ | [...] cmLVIDd: 4.63 cmLVPWd: 0.97 cmLVOT Area: 4.15 pt9QQMD Diam: 2.30 cm%FS: | | 28.72 %EF(Teich): [...] (A-L): 19.60 ml/m2LAAs A2C: | | 17.21 ci5VHTYV A-L A2C: 54.49 mlLALs A2C: 4.61 cmLAAs A4C: 16.10 wk9RVVGI A-L A4C: | | 46.35 mlLALs A4C: 4.74 cmRAAs: 15.82 jl2BUKSS A-L: 41.71 mlRAESV MOD: 40.82 | | mlRALs: 5.09 cmTAPSE: 2.51 cmAV maxP.42 mmHgAV meanP.44 mmHgAV Vmax: | | 1.26 m/Caesar Vmean: 0.86 m/Caesar VTI: 25.46 cmAVA Vmax: 3.56 cm2AVA (VTI): 3.47 | | [id number] maxP.73 mmHgLVOT meanP.52 mmHgLVSI Dopp: 34.05 ml/m2LVSV Dopp: | | 88.53 mlLVOT Vmax: 1.08 m/sLVOT Vmean: 0.73 m/sLVOT VTI: 21.31 cmMV A Gil: 0.57 | | m/sMV Dec [place]: 5.19 m/s2MV DecT: 207.99 msMV E Gil: 1.08 m/sMV E/A Ratio: 1.89 | | MV PHT: 60.31 msMVA By PHT: 3.64 [id number] e': 0.11 m/sSeptal E/e': 9.72 | | [...] A Gil: 0.57 m/s | |MV Dec [place]: 5.19 m/s2 | |MV DecT: 207.99 ms [...] | |S': 0.17 m/s | | | |Leadership Program Internship: ANA | |Authenticated by: Radha Juan | [...] | + + + + + | [facility] | [address] | [place] [address] | | + + + + + [...]
[~2018-07-04 12:30] MED LIST changes: +CEPHALEXIN500 MG PO
== END 2018-07-04 13:03 | disposition home or self-care (01) ==
LOC: ED 12:30
DX: L60.0 Ingrowing nail (principal)

== ENCOUNTER 2019-01-05 15:28 | Emergency (ER) | payer OTHER ==
[~2019-01-05] VITALS: Ht 188 cm; Wt 141.0 kg
--- OUTSIDE RECORDS SUMMARY | ~2019-01-05 | XMS | Clinical Summary ---
Demographics + + + | Address | [address] | | | [place] [address] | + + + | Home Phone | | + + + | Preferred Language | Unknown | + + + | Marital Status | Single | + + + | Yazidi Affiliation | Unknown | + + + | Race | Unknown | + + + | Ethnic Group | Unknown | + + + Author + + + | Author | [facility] | | | and [place] | + + + | Organization | [facility] | | | and [place] | + + + | Address | Unknown | + + + | Phone | Unavailable | + + + Support + + +---------+ + | Name | Relationship | Address | Phone | + + +---------+ + | Sari Boo | ECON | Unknown | | + + +---------+ + | Deidre Carbone | ECON | Unknown | | + + +---------+ + Care Team Providers + +------+ + | Care Hardwood Floor Refinisher Name | Role | Phone | + +------+ + | Karrie Marie PA-C | PP | | + +------+ + Allergies Not on File Current Medications Not on file Active Problems Not on file Social History + +-------+ +--------+------+ | Tobacco [...] on file | | + + + Plan of Treatment + + + + + | Health Maintenance | Due Date | Last Done | Comments | + + + + + | Vaccine: | | | | | Dtap/Tdap/Td (1 - | 5 | | | | Tdap) | | | | + + + + + | Vaccine: Influenza | | | | | (Season Ended) | 9 | | | + + + + + Results Not on filefrom Last 3 Months Insurance + +--------+ +--------+ +---------+ | Payer | Benefi | Subscriber | Type | Phone | Address | | | t Plan | ID | | | | | | / | | | | | | | Group | | | | | + +--------+ +--------+ +---------+ | [employer] | I[employer] | [id number] | Indemn | | | | SERVICE | YELLOW | | ity | | | | | [place] | | | | | + +--------+ +--------+ +---------+ | [employer] | MODA | [id number] | Medica | +- | | | MEDICAID HMO | HEALTH | | id | [id number] | | | | MDCD | | | | | | | [place] | | | | | + +--------+ +--------+ +---------+ + +--------+ +--------+ + + | Guarantor Name | Accoun | Relation to | Date | Phone | Billing Address | | | t Type | Patient | of | | | | | | | | | | + +--------+ +--------+ + + | CASTILLO CARBONE | Person | Self | [birth year] Home: | [address] | | [address] | jose alberto/Bishnu | | 1994 | [phone] | [address] | | | [address] | | | [phone] | [place] | | | | | | | [address] | + +--------+ +--------+ + +"
--- OUTSIDE RECORDS SUMMARY | ~2019-01-05 | XMS | Clinical Summary ---
Demographics + + + | Address | [address] | | | [place] [address] | + + + | Home Phone | | + + + | Preferred Language | Unknown | + + + | Marital Status | Single | + + + | Jain Affiliation | Unknown | + + + | Race | Unknown | + + + | Ethnic Group | Unknown | + + + Author + + + | Author | [facility] | + + + | Organization | [facility] | + + + | Address | Unknown | + + + | Phone | Unavailable | + + + Support + + +---------+ + | Name | Relationship | Address | Phone | + + +---------+ + | Deidre Carbone | ECON | Unknown | | + + +---------+ + Care Team Providers + +------+ + | Care Health Administration Teacher Name | Role | Phone | + [...] Vaccine: Influenza | | | | | (#1) | 8 | | | + + + + + Results Not on filefrom Last 3 Months Insurance + +--------+ +------+-------+ + | Payer | Benefi | Subscriber | Type | Phone | Address | | | t Plan | ID | | | | | | / | | | | | | | Group | | | | | + +--------+ +------+-------+ + | MEDICAID | [employer] | [id number] | | | [address] | | | [place] | | | | [place] | | | [place] | | | | [address] | | | [employer] [employer] | | | | | + +--------+ +------+-------+ + + +--------+ +--------+ + + | Guarantor Name | Accoun | Relation to | Date | Phone | Billing Address | | | t Type | Patient | of | | | | | | | | | | + +--------+ +--------+ + + | CASTILLO CARBONE W | Person | Self | [birth year] | Work: | [address] | | | al/Bishnu | | 1994 | [phone] | | | [address] | | | [phone] Home: | [place] | | | | | | | [address] | | | | | | [phone] | | | | | | | [phone] | | + +--------+ +--------+ + +"
--- OUTSIDE RECORDS SUMMARY | ~2019-01-05 | XMS | Clinical Summary ---
Demographics + + + | Address | [address] | | | [place] [address] | + + + | Home Phone | | + + + | Preferred Language | Unknown | + + + | Marital Status | Single | + + + | Jehovah'S Witness Affiliation | Unknown | + + + | Race | Unknown | + + + | Ethnic Group | Unknown | + + + Author + + + | Author | [facility] | + + + | Organization | [facility] | + + + | Address | Unknown | + + + | Phone | Unavailable | + + + Support + + +---------+ + | Name | Relationship | Address | Phone | + + +---------+ + | Deidre Carbone | ECON | Unknown | | + + +---------+ + Care Team Providers + +------+ + | Care Trucker Hand Name | Role | Phone | + [...] +------+-------+ + | MEDICAID | [employer] | [id number] | | | [address] | | | N | | | | [place] | | | [place] | | | | [address] | | | HEMODIALYSIS PATIENT CARE SPECIALIST | | | | | + +--------+ [...] | | al/Bishnu | | 1994 | [phone] | [address] | | | [address] | | | [phone]: | [place] | | | | | | | [address] | | | | | | [phone] | | | | | | | [phone] | | + +--------+ +--------+ + +"
--- OUTSIDE RECORDS SUMMARY | ~2019-01-05 | XMS | Clinical Summary ---
Demographics + + + | Address | [address] | | | [place] [address] | + + + | Home Phone | | + + + | Preferred Language | Unknown | + + + | Marital Status | Single | + + + | Moravian Affiliation | Unknown | + + + | Race | Unknown | + + + | Ethnic Group | Unknown | + + + Author + + + | Author | [facility] | | | and [place] | + + + | Organization | [facility] | | | and [place] | [...] Team Providers + +------+ + | Care Travel Manager Name | Role | Phone | [...] | | + +--------+ +--------+ +---------+ | [facility] | IHS | [id number] | Indemn | | | | SERVICE | YELLOW | | ity | | | | | [place]WK | | | | | + +--------+ +--------+ +---------+ | [employer] | [employer] | [id number] | Medica | +- | | | [...] | Self | [birth year] | Home: | [address] | | [place] | jose alberto/Bishnu | | 1994 | [phone] | [address] | | | [address] | | | [phone] | [place] | | | | | | | [address] | + +--------+ +--------+ + +"
== END 2019-01-05 17:04 | disposition home or self-care (01) ==
LOC: ED 15:28
DX: M79.641 Pain in right hand (principal); F41.9 Anxiety disorder, unspecified; F32.9 Major depressive disorder, single episode, unspecified; K21.9 Gastro-esophageal reflux disease without esophagitis; F17.200 Nicotine dependence, unspecified, uncomplicated; Z88.8 Allergy status to other drugs, medicaments and biological substances; Z91.09 Other allergy status, other than to drugs and biological substances; X50.0XXA Overexertion from strenuous movement or load, initial encounter
CPT/HCPCS: 73130; 99283-25

== ENCOUNTER 2020-07-30 21:25 | Emergency (ER) | payer SELFPAY ==
[~2020-07-30] VITALS: Ht 188 cm; Wt 163.3 kg
== END 2020-07-30 22:14 | disposition home or self-care (01) ==
LOC: ED 21:25
DX: S60.222A Contusion of left hand, initial encounter (principal); F17.200 Nicotine dependence, unspecified, uncomplicated; Z88.8 Allergy status to other drugs, medicaments and biological substances; V00.131A Fall from skateboard, initial encounter
CPT/HCPCS: 73130; 90471; 90715; 99283-25

== ENCOUNTER 2021-07-27 01:25 | Emergency (ER) | payer SELFPAY ==
[~2021-07-27] VITALS: Ht 188 cm; Wt 161.2 kg
== END 2021-07-27 03:43 | disposition home or self-care (01) ==
LOC: ED 01:25
DX: K62.5 Hemorrhage of anus and rectum (principal); K21.9 Gastro-esophageal reflux disease without esophagitis; F17.200 Nicotine dependence, unspecified, uncomplicated; Z88.8 Allergy status to other drugs, medicaments and biological substances
CPT/HCPCS: 80053; 81001; 83690; 83735; 85025; 96374; 99284-25; C9113; J7030

== ENCOUNTER 2024-07-16 19:46 | Emergency (ER) | payer OTHER, BC ==
[~2024-07-16] VITALS: Ht 188 cm; Wt 154.7 kg
[2024-07-16] MEDS ORDERED: AMLODIPINE BESYL5 MG PO (20:00)
[2024-07-16 21:02] VITALS: BP 132/84
== END 2024-07-16 21:12 | disposition home or self-care (01) ==
LOC: ED 19:46
DX: S90.31XA Contusion of right foot, initial encounter (principal); I10 Essential (primary) hypertension; F17.200 Nicotine dependence, unspecified, uncomplicated; V00.131A Fall from skateboard, initial encounter; Z88.8 Allergy status to other drugs, medicaments and biological substances; Z79.899 Other long term (current) drug therapy
CPT/HCPCS: 73630; 99283

== ENCOUNTER 2025-01-20 08:38 | Emergency (ER) | payer BC ==
[~2025-01-20] VITALS: Ht 188 cm; Wt 145.8 kg
[~2025-01-20 08:38] MED LIST changes: +AMLODIPINE BESYL5 MG PO
[2025-01-20] MEDS ORDERED: KETOROLAC TROMETHAMINE 60 MG/2 ML VIAL IM ONE (09:00)
[2025-01-20] MEDS ORDERED: HYDROCODONE/ACETA 7.5/325 TAB PO ONE (09:00)
[2025-01-20] MEDS ORDERED: methocarbamoL 500 MG TABLET PO ONE (09:00)
[2025-01-20] MEDS ORDERED: METHOCARBAMOL750 MG PO (09:03)
[2025-01-20] MEDS ORDERED: HYDROCODON-ACE1 EA11 PO (09:03)
[2025-01-20 10:16] VITALS: BP 124/85
== END 2025-01-20 10:16 | disposition home or self-care (01) ==
LOC: ED 08:38
DX: M54.50 Low back pain, unspecified (principal); F17.200 Nicotine dependence, unspecified, uncomplicated; I10 Essential (primary) hypertension
CPT/HCPCS: 96372; 99283; A9270; J1885